=== PATIENT | female | born 1955 | race Caucasian/White ===

== ENCOUNTER 2017-03-03 11:04 | Emergency (ER) | payer MEDICAID ==
[~2017-03-03] VITALS: Ht 142.2 cm; Wt 59.5 kg
[~2017-03-03 11:04] MED LIST: METF500T PO; SYN.1 PO
[2017-03-03 11:34] VITALS: BP 123/74
--- NOTE | 2017-03-03 12:25 | NUR ---
PT AMBULATED TO ER BED #12.
--- NOTE | 2017-03-03 12:30 | NUR ---
61/F PRESENT TO ER C/O SWELLING AND PAIN 12/26 TO RIGHT INNER ARM LACERATION SEEN ON 03/01/17. PT STATES SHE HAD A FOOD PERIANESTHESIA RN ACCIDENT ONN 03/01/2017. INNER RT ARM POS SWELLING AND REDNESS. AAOx4, PERRLA, BREATHING EVEN AND UNLABORED. ERMD NOTIFIED OF PATIENT STATUS.
--- NOTE | 2017-03-03 12:31 | NUR ---
Patient being evaluated by physician at bedside.
[2017-03-03] MEDS ORDERED: NEOMYCIN/POLYMYXIN/BACITRACIN 0.9 GM/1 PKT TP ONE (12:35)
[2017-03-03 13:02] VITALS: BP 124/67
--- NOTE | 2017-03-03 13:02 | NUR ---
Patient discharged with v/s stable. Written and verbal after care instructions given and explained. Patient alert, oriented and verbalized understanding of instructions. Ambulatory with steady gait. All questions addressed prior to discharge. ID band removed. Patient advised to follow up with PMD. Rx of CEPHALEXIN 500MG CAPS AND MOTRIN 400MG TABLET given. Patient educated on indication of medication including possible reaction and side effects. Opportunity to ask questions provided and answered.
== END 2017-03-03 13:02 | disposition home or self-care (01) ==
LOC: MED 11:04
DX: S41.111A Laceration without foreign body of right upper arm, initial encounter (principal); L03.113 Cellulitis of right upper limb; E11.9 Type 2 diabetes mellitus without complications; I10 Essential (primary) hypertension; Z79.84 Long term (current) use of oral hypoglycemic drugs; Z79.899 Other long term (current) drug therapy; W29.8XXA Contact with other powered hand tools and household machinery, initial encounter; Y93.89 Activity, other specified; Y92.89 Other specified places as the place of occurrence of the external cause; Y99.8 Other external cause status
CPT/HCPCS: 90471; 90715; 99283

== ENCOUNTER 2017-03-09 07:30 | Emergency (ER) | payer MEDICAID ==
[~2017-03-09] VITALS: Ht 149.9 cm; Wt 59.6 kg
[2017-03-09 07:31] VITALS: BP 110/67
--- NOTE | 2017-03-09 07:36 | NUR ---
PT TAKEN TO BED 9
--- NOTE | 2017-03-09 07:37 | NUR ---
61/F C/O LACERATION REPAIR 03/01/2017 RIGHT ELBOW AREA---RETURENED TO HAVE SUTURES REMOVED. NO ERYTHEMA, NO EDEMA, NO DRAINAGE NOTED FROM WOUND SITE; SCABBED HX OF HTN, DM, THYROID. RX OF LEVOTHYROXINE, METFORMIN, [id number]/F . DENIES N/V/D; AAOX4 WITH EVEN AND STEADY GAIT; LUNGS CLEAR BL; PATIENT STATES PAIN OF 2/10 AT THIS TIME; VSS; PATIENT POSITIONED FOR COMFORT; HOB ELEVATED; BEDRAILS UP X2; BED DOWN. ER MD MADE AWARE OF PT STATUS.
--- NOTE | 2017-03-09 07:40 | NUR ---
Patient being evaluated by DR PHILIP at bedside.
--- NOTE | 2017-03-09 07:47 | NUR ---
STICHES OFF TO R ELBOW DONE BY DR PHILIP. PT TOLERATED PROCEDURE WELL.
[2017-03-09 07:55] VITALS: BP 108/65
--- NOTE | 2017-03-09 07:55 | NUR ---
Patient discharged with v/s stable. Written and verbal after care instructions given and explained. Patient verbalized understanding. Ambulatory with steady gait. All questions addressed prior to discharge. Advised to follow up with PMD.
== END 2017-03-09 07:55 | disposition home or self-care (01) ==
LOC: MED 07:30
DX: S51.811D Laceration without foreign body of right forearm, subsequent encounter (principal); E11.9 Type 2 diabetes mellitus without complications; I10 Essential (primary) hypertension; W23.0XXD Caught, crushed, jammed, or pinched between moving objects, subsequent encounter
CPT/HCPCS: 99281

== ENCOUNTER 2017-09-21 07:29 | Emergency (ER) | payer MEDICAID ==
[~2017-09-21] VITALS: Ht 149.9 cm; Wt 62.4 kg
[2017-09-21 07:34] VITALS: BP 144/105
--- NOTE | 2017-09-21 07:35 | NUR ---
Patient ambulated to bed 6. RN evaluating patient at bedside.
--- NOTE | 2017-09-21 07:36 | NUR ---
AFTER PROVIDING URINE SAMPLE PT AMBULATES TO BED 6
--- NOTE | 2017-09-21 07:41 | NUR ---
62/F BIB SELF W/ C/O HEAD ACHE WITH DIZZINESS, TIRED X 2 DAYS.HX; DM,HYPOTHYROID. RX;METFORMIN, HYDROCHLOROTHIAZIDE, LEVOTHYROXINE. DENIES N/V/D; SKIN IS PINK/WARM/DRY; AAOX4 WITH EVEN AND STEADY GAIT; LUNGS CLEAR BL. PT DENIES ANY FEVER, CP, SOB, OR COUGH AT THIS TIME; PATIENT STATES PAIN OF 8/10 AT THIS TIME. PATIENT POSITIONED FOR COMFORT; HOB ELEVATED; BEDRAILS UP X2; BED DOWN. ER MD MADE AWARE OF PT STATUS.
--- NOTE | 2017-09-21 07:43 | NUR ---
Patient being evaluated by DR BLANK at bedside.
[2017-09-21] MEDS ORDERED: MECLIZINE 25 MG TAB PO ONE (07:50)
[2017-09-21] MEDS ORDERED: ACETAMINOPHEN 325 MG TAB PO ONE (07:50)
[2017-09-21] MEDS ORDERED: ACETAMINOPHEN EXTRA STRENGTH 500 MG TAB ONE (08:04)
--- NOTE | 2017-09-21 08:04 | NUR ---
LAB AT BEDSIDE
--- NOTE | 2017-09-21 08:05 | NUR ---
EKG AT BEDSIDE
--- NOTE | 2017-09-21 08:09 | NUR ---
PT TAKEN TO XRAY & CT VIA W/C ACCOMPANIED BY [employer].
[2017-09-21 08:14] LABS: BASOPHILS % (AUTO) 0.5 % (0.0-2.0); EOSINOPHILS # (AUTO) 0.2 K/uL (0-0.4); EOSINOPHILS % (AUTO) 3.7 % (0.0-4.0); HEMATOCRIT 38.7 % (36-48); HEMOGLOBIN 12.9 g/dL (12.0-16.0); LYMPHOCYTES # (AUTO) 1.6 K/uL (2.5-16.5); LYMPHOCYTES % (AUTO) 26.4 % (20.5-51.1); MEAN CORPUSCULAR HEMOGLOBIN 30 pg (27-31); MEAN CORPUSCULAR HGB CONC 33 g/dL (33-37); MEAN CORPUSCULAR VOLUME 88.7 fL (80-94); MONOCYTES # (AUTO) 0.7 K/uL (0.8-1.0); MONOCYTES % (AUTO) 12.1 % (1.7-9.3); NEUTROPHILS # (AUTO) 3.5 K/uL (1.8-7.7); NEUTROPHILS % (AUTO) 57.3 % (42.2-75.2); PLATELET COUNT (AUTO) 250 K/uL (140-450); RED BLOOD CELL COUNT(AUTO) 4.36 MIL/uL (4.20-5.40); WHITE BLOOD COUNT (AUTO) 6.1 K/uL (4.8-10.8)
--- NOTE | 2017-09-21 08:19 | NUR ---
pt back from xray at this time.
[2017-09-21 08:22] LABS: ANION GAP 8.1 (8-16); CARBON DIOXIDE 31.2 mmol/L (21-32); CREATININE 0.8 mg/dL (0.6-1.3); POTASSIUM 3.3 mmol/L (3.5-5.1)
[2017-09-21 08:29] LABS: ALBUMIN 3.7 g/dL (3.4-5.0); TOTAL BILIRUBIN 0.5 mg/dL (0.0-1.0)
--- NOTE | 2017-09-21 09:18 | NUR ---
Patient being reevaluated by DR BLANK at bedside.
[2017-09-21 09:27] VITALS: BP 124/65
--- NOTE | 2017-09-21 09:27 | NUR ---
Patient discharged with v/s stable. Written and verbal after care instructions given and explained. Patient alert, oriented and verbalized understanding of instructions. Ambulatory with steady gait. All questions addressed prior to discharge. ID band removed. Patient advised to follow up with PMD. Rx of MECLIZINEgiven. Patient educated on indication of medication including possible reaction and side effects. Opportunity to ask questions provided and answered.
== END 2017-09-21 09:25 | disposition home or self-care (01) ==
LOC: MED 07:29
DX: I10 Essential (primary) hypertension (principal); E11.9 Type 2 diabetes mellitus without complications; R53.1 Weakness; E07.9 Disorder of thyroid, unspecified
CPT/HCPCS: 36415; 70450; 71045; 80053; 81002; 84484; 85025; 93005; 99285; J8597; Q0092

== ENCOUNTER 2021-11-25 13:09 | Emergency (ER) | payer MEDICAID, OTHER ==
[~2021-11-25] VITALS: Ht 147.3 cm; Wt 60.9 kg
[~2021-11-25 13:09] MED LIST changes: +METF-346 PO; -METF500T PO
[2021-11-25 13:35] VITALS: BP 136/78
--- NOTE | 2021-11-25 13:45 | NUR ---
PT AMB TO BED 7.
--- NOTE | 2021-11-25 14:02 | NUR ---
66 Y/O F C/O COMPLAINED OF HEADACHE AND DIZZINESS, GENERALIZED WEAKNESS FOR 2 WEEKS. DENIES CHEST PAIN, SOB, FEVER, N/V/D, COUGH AT THIS TIME. VS STABLE. HOB ELEVATED, BEDRAILS X2, BED IN LOW POSITION. ER MD MADE AWARE OF PT STATUS. PMH: HTN, HYPERTHYROID, NEUROPATHY MEDS: ATORVASTATIN, GABAPENTIN (RIGHT ANKLE), LEVOTHYROXINE, HYDROCHLOROTHIAZIDE NKA
--- NOTE | 2021-11-25 14:03 | NUR ---
THERMODYNAMICS ENGINEER USED. THERMODYNAMICS ENGINEER: EMIL. ID NUMBER [id number]
--- NOTE | 2021-11-25 14:07 | NUR ---
MD AT BEDSIDE SPEAKING WITH THE PATIENT.
--- NOTE | 2021-11-25 14:30 | NUR ---
EYELET MACHINE OPERATOR AT BEDSIDE FOR BLOOD DRAW
[2021-11-25 14:38] LABS: BASOPHILS # (AUTO) 0.1 K/uL (0.00-0.22); BASOPHILS % (AUTO) 0.6 % (0.0-2.0); EOSINOPHILS # (AUTO) 0.3 K/uL (0-0.4); EOSINOPHILS % (AUTO) 2.8 % (0.0-4.0); HEMATOCRIT 38.7 % (36-48); HEMOGLOBIN 12.9 g/dL (12.0-16.0); LYMPHOCYTES # (AUTO) 2.1 K/uL (2.5-16.5); LYMPHOCYTES % (AUTO) 23.7 % (20.5-51.1); MEAN CORPUSCULAR HEMOGLOBIN 30 pg (27-31); MEAN CORPUSCULAR HGB CONC 33 g/dL (33-37); MEAN CORPUSCULAR VOLUME 89.9 fL (80-94); MONOCYTES # (AUTO) 1.1 K/uL (0.8-1.0); MONOCYTES % (AUTO) 12.9 % (1.7-9.3); NEUTROPHILS # (AUTO) 5.3 K/uL (1.8-7.7); PLATELET COUNT (AUTO) 247 K/uL (140-450); RED BLOOD CELL COUNT(AUTO) 4.31 MIL/uL (4.20-5.40); RED CELL DISTRIBUTION WIDTH 13.7 % (11.6-13.7); WHITE BLOOD COUNT (AUTO) 8.9 K/uL (4.8-10.8)
[2021-11-25 14:43] LABS: BILIRUBIN,URINE NEGATIVE (NEGATIVE); BLOOD, URINE NEGATIVE (NEGATIVE); COLOR,URINE YELLOW (YELLOW); LEUKOCYTE ESTERASE ,URINE 2+ (NEGATIVE); NITRITE, URINE NEGATIVE (NEGATIVE); UGLUCOSE NEGATIVE (NEGATIVE)
[2021-11-25 14:52] LABS: APPEARANCE,URINE HAZY (CLEAR)
[2021-11-25 14:57] LABS: RBC,URINE NONE SEEN /HPF (0-5)
[2021-11-25 15:02] LABS: ALBUMIN 3.5 g/dL (3.4-5.0); ANION GAP 10.9 (8-16); ASPARTATE AMINOTRANSFERASE 81 U/L (15-37); CARBON DIOXIDE 30.6 mmol/L (21-32); CHLORIDE 101 mmol/L (98-107); CREATININE 0.7 mg/dL (0.6-1.3); FREE T4 (FREE THYROXINE) 2.73 ng/dL (0.76-1.46); GFR ARICAN-AMERICAN 107 mL/min (>90); GLUCOSE 100 mg/dL (74-106); POTASSIUM 3.5 mmol/L (3.5-5.1); SODIUM SERUM 139 mmol/L (136-145); THYROID STIMULATING HORMONE < 0.01 uIU/mL (0.34-3.74); TOTAL BILIRUBIN 0.3 mg/dL (0.0-1.0); UREA NITROGEN, BLOOD 15 mg/dL (7-18)
[2021-11-25] MEDS ORDERED: CEPH-588 PO (15:59)
[2021-11-25 16:54] VITALS: BP 126/70
== END 2021-11-25 16:54 | disposition home or self-care (01) ==
LOC: MED 13:09
DX: N39.0 Urinary tract infection, site not specified (principal); E03.9 Hypothyroidism, unspecified; R53.1 Weakness; Z11.52 Encounter for screening for COVID-19
CPT/HCPCS: 36415; 71045; 80053; 81001; 84439; 84443; 84484; 85025; 87086; 93005; 99285; Q0092

== ENCOUNTER 2022-04-02 16:48 | Emergency (ER) | payer OTHER ==
[~2022-04-02] VITALS: Ht 171.4 cm; Wt 61.7 kg
[~2022-04-02 16:48] MED LIST changes: +CEPH-588 PO
[2022-04-02 17:03] VITALS: BP 108/67
[2022-04-02] MEDS ORDERED: ONDANSETRON 4 MG/2 ML VIAL IM ONE (18:50)
--- NOTE | 2022-04-02 19:25 | NUR ---
SEEN AND EXAMINED BY BRENNAN
[2022-04-02 20:01] LABS: BASOPHILS % (AUTO) 0.5 % (0.0-2.0); EOSINOPHILS % (AUTO) 0.1 % (0.0-4.0); HEMATOCRIT 36.8 % (36-48); HEMOGLOBIN 12.7 g/dL (12.0-16.0); LYMPHOCYTES # (AUTO) 1.2 K/uL (2.5-16.5); MEAN CORPUSCULAR HEMOGLOBIN 31 pg (27-31); MEAN CORPUSCULAR HGB CONC 34 g/dL (33-37); MONOCYTES % (AUTO) 18.1 % (1.7-9.3); NEUTROPHILS # (AUTO) 3.4 K/uL (1.8-7.7); NEUTROPHILS % (AUTO) 60.3 % (42.2-75.2); PLATELET COUNT (AUTO) 203 K/uL (140-450); RED BLOOD CELL COUNT(AUTO) 4.13 MIL/uL (4.20-5.40); RED CELL DISTRIBUTION WIDTH 13.5 % (11.6-13.7); WHITE BLOOD COUNT (AUTO) 5.6 K/uL (4.8-10.8)
[2022-04-02 20:25] LABS: APPEARANCE,URINE CLEAR (CLEAR); BILIRUBIN,URINE NEGATIVE (NEGATIVE); BLOOD, URINE TRACE-I (NEGATIVE); COLOR,URINE YELLOW (YELLOW); LEUKOCYTE ESTERASE ,URINE NEGATIVE (NEGATIVE); NITRITE, URINE NEGATIVE (NEGATIVE); PH,URINE 6.5 (5.0-9.0); UGLUCOSE NEGATIVE (NEGATIVE)
[2022-04-02 20:30] LABS: ALBUMIN 3.5 g/dL (3.4-5.0); ANION GAP 9.3 (8-16); CARBON DIOXIDE 33.9 mmol/L (21-32); CREATININE 0.9 mg/dL (0.6-1.3); POTASSIUM 3.2 mmol/L (3.5-5.1); TOTAL BILIRUBIN 0.4 mg/dL (0.0-1.0)
[2022-04-02 20:47] LABS: RBC,URINE 0-5 /HPF (0-5); WBC,URINE 0-5 /HPF (0-5)
[2022-04-02] MEDS ORDERED: POTASSIUM CHLORIDE 10 MEQ TABER PO ONE (21:00)
[2022-04-02] MEDS ORDERED: ONDA-188 PO (21:09)
[2022-04-02 21:32] VITALS: BP 118/78
--- NOTE | 2022-04-02 21:32 | NUR ---
Patient discharged with v/s stable. Written and verbal after care instructions given and explained. Patient alert, oriented and verbalized understanding of instructions. Ambulatory with steady gait. All questions addressed prior to discharge. ID band removed. Patient advised to follow up with PMD. Rx of ZOFRAN ODT given. Patient educated on indication of medication including possible reaction and side effects. Opportunity to ask questions provided and answered.
== END 2022-04-02 21:32 | disposition home or self-care (01) ==
LOC: MED 16:48
DX: J40 Bronchitis, not specified as acute or chronic (principal); J06.9 Acute upper respiratory infection, unspecified; E03.9 Hypothyroidism, unspecified; I10 Essential (primary) hypertension; E11.9 Type 2 diabetes mellitus without complications; Z79.4 Long term (current) use of insulin; Z79.899 Other long term (current) drug therapy
CPT/HCPCS: 36415; 80053; 81001; 85025; 96372; 99283; J2405

== ENCOUNTER 2022-07-18 09:11 | Emergency (ER) | payer OTHER ==
[~2022-07-18] VITALS: Ht 146.1 cm; Wt 63.5 kg
[~2022-07-18 09:11] MED LIST changes: +ONDA-188 PO
[2022-07-18 09:14] VITALS: BP 121/65
--- NOTE | 2022-07-18 09:28 | NUR ---
67/F WALKED IN C/O RIGHT SHOULDER PAIN X 8 DAYS. DENIES FALL OR TRAUMA. REPORTS CONSTANT 8/10 PAIN. NO DEFORMITY OR BRUISING NOTED. VITALS STABLE. PMH: DM, HTN, THYROID
--- NOTE | 2022-07-18 09:34 | NUR ---
Patient being evaluated by physician at bedside.
[2022-07-18] MEDS ORDERED: ACETAMINOPHEN 325 MG TAB PO ONE (09:45)
[2022-07-18] MEDS ORDERED: ACET-8905 PO (10:20)
--- NOTE | 2022-07-18 10:28 | NUR ---
Patient discharged with v/s stable. Written and verbal after care instructions given. Patient alert, oriented and verbalized understanding of instructions. Ambulatory with steady gait. All questions addressed prior to discharge. ID band removed. Patient advised to follow up with PMD. Rx of HYDROCODONE/ACETAMINOPHEN given. Opportunity to ask questions provided and answered.
== END 2022-07-18 10:28 | disposition home or self-care (01) ==
LOC: MED 09:11
DX: M25.511 Pain in right shoulder (principal); M62.830 Muscle spasm of back; I10 Essential (primary) hypertension; Z86.39 Personal history of other endocrine, nutritional and metabolic disease; Z79.899 Other long term (current) drug therapy; Z79.891 Long term (current) use of opiate analgesic; Z79.2 Long term (current) use of antibiotics
CPT/HCPCS: 73030; 82948; 99283; Q0092